=== PATIENT | male | born 1930 | race Hispanic/Latino ===

== ENCOUNTER 2019-03-22 16:44 | Emergency (ER) | payer OTHER | END 2019-03-22 19:07 | disposition home or self-care (01) | LOC: EDH 16:44 | DX: S02.2XXA Fracture of nasal bones, initial encounter for closed fracture (principal); Z88.0 Allergy status to penicillin; Y04.0XXA Assault by unarmed brawl or fight, initial encounter; Y93.89 Activity, other specified; Y92.89 Other specified places as the place of occurrence of the external cause; Y99.8 Other external cause status | CPT/HCPCS: 70450; 70486 ==